=== PATIENT | female | born 1970 ===

== ENCOUNTER 2016-07-25 14:50 | Emergency (ER) | payer OTHER ==
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
== END 2016-07-25 15:50 | disposition disaster alternative care site (69) ==
LOC: GACC 14:50
DX: S50.01XA Contusion of right elbow, initial encounter (principal); S50.11XA Contusion of right forearm, initial encounter; F41.9 Anxiety disorder, unspecified; Z98.51 Tubal ligation status; V43.62XA Car passenger injured in collision with other type car in traffic accident, initial encounter

== ENCOUNTER → 2016-07-25 | Outpatient (CLI) | payer OTHER | END | disposition disaster alternative care site (69) | LOC: GAMB 14:32 | DX: M79.601 Pain in right arm (principal); V49.50XA Passenger injured in collision with unspecified motor vehicles in traffic accident, initial encounter | CPT/HCPCS: A0425; A0429 ==